=== PATIENT | female | born 1945 | race Caucasian/White ===

== ENCOUNTER 2017-06-20 11:59 | Emergency (ER) | payer MEDICARE, BC ==
[~2017-06-20] VITALS: Ht 165.1 cm; Wt 56.7 kg
[2017-06-20] MEDS ORDERED: MECL-102 PO (12:11)
--- NOTE | 2017-06-20 12:16 | NUR ---
PT IS IN ROOM #1A. DR AGUILAR EVALUATED THE PT.
--- NOTE | 2017-06-20 13:45 | NUR ---
PT WAS D/C TO HOME AFTER DR AGUILAR RE-EVALUATION. D/C INSTRUCTIONS GIVEN TO THE PT.
[2017-06-20 13:48] VITALS: BP 126/79
== END 2017-06-20 14:35 | disposition home or self-care (01) ==
LOC: ER 11:59
DX: R42 Dizziness and giddiness (principal)
CPT/HCPCS: A4663